=== PATIENT | female | born 1955 | race Caucasian/White ===

== ENCOUNTER 2016-08-07 14:47 | Emergency (ER) | payer OTHER ==
[~2016-08-07] VITALS: Ht 165.1 cm; Wt 48.7 kg
[~2016-08-07 14:47] MED LIST: AMBIEN CR12.5 MG; AMBIEN CR12.5 MG PO; AMLODIPINE BESY10 MG; AMPHETAMINE SAL20 MG PO; BACLOFEN20 MG; BACLOFEN20 MG PO; CENTRUM SILVER1 EAC3 PO; CIPROFLOXACIN500 M1 PO; CLONAZEPAM1 MG; CLONAZEPAM1 MG PO; CYMBALTA30 MG PO; DESYREL100 MG PO; DESYREL300 MG PO; EFFEXOR XR75 MG PO; Effexor PO; GABAPENTIN600 MG PO; HYDROMORPHONE ER8 MG PO; IBUPROFEN800 MG; KLONOPIN1 MG PO; LIDODERM 5% P1 PATCH; LYRICA150 MG; LYRICA150 MG PO; NORVASC10 MG PO; OXYCODONE HCL15 MG PO; OXYCODONE HCL20 M1 PO; OXYCODONE HCL5 MG PO; PRINIVIL10 MG; Protonix PO; TIZANIDINE HCL4 MG PO; TYLENOL PM1 CAPLET PO; VENLAFAXINE HCL75 M3; VENLAFAXINE HCL75 M3 PO; VENLAFAXINE HCL75 MG PO; ZESTRIL10 MG PO; ZOLPIDEM TART12.5 MG PO; Zestril,Prinivil PO
[2016-08-07 15:51] LABS: HEMATOCRIT 39.2 % (36.0-46.0); MCH 31.3 PG (29.0-34.0); MCHC 33.2 G/DL (30.0-36.0); MCV 94.2 FL (83-99); PLATELET COUNT 361 K/uL (156-360); RBC DIS.WIDTH-CV 12.1 % (11.8-14.6); RED BLOOD COUNT 4.16 M/uL (3.80-5.20); WHITE BLOOD COUNT 11.5 K/uL (4.1-10.2)
[2016-08-07 15:59] LABS: CHLORIDE 105 mEq/L (99-109); POTASSIUM 2.8 mEq/L (3.7-5.4); SODIUM 139 mEq/L (136-147)
[2016-08-07 16:01] LABS: GLUCOSE 97 mg/dL (70-99)
[2016-08-07 16:02] LABS: ANION GAP 9 MEQ/L (2-14)
[2016-08-07 16:03] LABS: TOTAL BILIRUBIN 0.3 mg/dL (0.0-1.0)
[2016-08-07 16:04] LABS: ALKALINE PHOSPHATASE 71 IU/L (3-129)
[2016-08-07 16:05] LABS: GFR ESTIMATE (CALCULATED) > 59 mL/min/
[2016-08-07 16:06] LABS: UREA NITROGEN (BUN) 20 mg/dL (9-23)
[2016-08-07 16:32] LABS: INFLUENZA A VIRAL ANTIGEN NEGATIVE; INFLUENZA B VIRAL ANTIGEN NEGATIVE
[2016-08-07] MEDS ORDERED: DESYREL100 MG PO (19:40)
[2016-08-07] MEDS ORDERED: TYLENOL PM1 CAPLET PO (19:40)
[2016-08-07] MEDS ORDERED: ZOFRAN ODT4 MG PO (19:43)
[2016-08-07 19:50] VITALS: BP 149/84
== END 2016-08-07 19:51 | disposition left against medical advice (07) ==
LOC: EME 14:47
PROVIDERS: Physician Assistant
DX: E87.6 Hypokalemia (principal); R53.1 Weakness; Z96.653 Presence of artificial knee joint, bilateral; Z88.6 Allergy status to analgesic agent
CPT/HCPCS: 71020; 80053; 84132 91; 85027; 87502; 93005; 99281; 99285; J3480; J7030

== ENCOUNTER 2016-08-09 15:22 | Inpatient (IN) | payer OTHER ==
[~2016-08-09] VITALS: Ht 165.1 cm; Wt 48.6 kg
[~2016-08-09 15:22] MED LIST changes: +ZOFRAN ODT4 MG PO
[2016-08-09 16:06] LABS: ADD MIUA? YES; BILIRUBIN NEGATIVE; BLOOD MODERATE; COLOR YELLOW ((YELLOW)); GLUCOSE (STRIP) NEGATIVE; KETONES NEGATIVE; LEUKOCYTES SMALL; NITRITE NEGATIVE; PROTEIN (STRIP) 30; SPECIFIC GRAVITY 1.008 (1.000-1.030); UROBILINOGEN 0.2 MG/DL (0.2-1.0)
[2016-08-09 16:13] LABS: ADD MEDTOX COMMENT Y; AMPHETAMINE PRESUMPTIVE POSITIVE (500 ng/mL); BARBITURATES NEGATIVE (200 ng/mL); BENZODIAZEPINES NEGATIVE (150 ng/mL); COCAINE NEGATIVE (150 ng/mL); INTERNAL CONTROLS VALID? YES; METHADONE NEGATIVE (200 ng/mL); METHAMPHETAMINE NEGATIVE (500 ng/mL); OPIATES (MORPHINE) PRESUMPTIVE POSITIVE (100 ng/mL); OXYCODONE PRESUMPTIVE POSITIVE (100 ng/mL); PHENCYCLIDINE NEGATIVE (25 ng/mL); PROPOXYPHENE NEGATIVE (300 ng/mL); THC CANNABINOIDS NEGATIVE (50 ng/mL); TRICYCLIC ANTIDEPRESSANTS NEGATIVE (300 ng/mL)
[2016-08-09 16:14] LABS: EOSINOPHIL (%) 0.3 % (0-5); HEMATOCRIT 40.4 % (36.0-46.0); IMMATURE GRANULOCYTE (%) 0.3 % (0.0-0.7); INSTRUMENT ABS NEUTROPHIL CT 12.3 K/uL; LYMPHOCYTE COUNT 1.1 K/uL (1.0-2.8); MCH 31.6 PG (29.0-34.0); MCHC 33.4 G/DL (30.0-36.0); MCV 94.6 FL (83-99); MEAN PLAT.VOLUME 9.2 uM^3 (9.5-12.4); MONOCYTE (%) 2.7 % (3-12); MONOCYTE COUNT 0.4 K/uL (0-0.8); NEUTROPHIL (%) 88.7 % (45-76); NEUTROPHIL COUNT 12.3 K/uL (1.8-6.4); PLATELET COUNT 341 K/uL (156-360); RBC DIS.WIDTH-CV 12.2 % (11.8-14.6); RBC DIS.WIDTH-SD 42.3 % (39-53); RED BLOOD COUNT 4.27 M/uL (3.80-5.20); WHITE BLOOD COUNT 13.9 K/uL (4.1-10.2)
[2016-08-09 16:23] LABS: CHLORIDE 98 mEq/L (99-109); SODIUM 134 mEq/L (136-147)
[2016-08-09 16:25] LABS: GLUCOSE 94 mg/dL (70-99)
[2016-08-09 16:27] LABS: ANION GAP 16 MEQ/L (2-14)
[2016-08-09 16:28] LABS: POTASSIUM 3.9 mEq/L (3.7-5.4); TOTAL BILIRUBIN 0.9 mg/dL (0.0-1.0)
[2016-08-09 16:29] LABS: ALKALINE PHOSPHATASE 81 IU/L (3-129); GFR ESTIMATE (CALCULATED) > 59 mL/min/
[2016-08-09 16:30] LABS: UREA NITROGEN (BUN) 8 mg/dL (9-23)
[2016-08-09 16:32] LABS: LIPASE 25 U/L (1.0-51.0)
[2016-08-09 16:34] LABS: BACTERIA RARE /HPF; EPITHELIAL CELLS RARE /HPF; MUCUS TRACE /LPF
[2016-08-09 17:40] LABS: AMPHETAMINES QUANT VALUE 0 NG/ML
[2016-08-09] MEDS ORDERED: AMPHETAMINE SAL30 MG PO (20:23)
[2016-08-09] MEDS ORDERED: POTASSIUM CHLO10 ME4 PO (20:31)
[2016-08-09 22:48] VITALS: BP 132/60
[2016-08-10] VITALS (7 sets, daily range): BP systolic 99–170; BP diastolic 52–93
[2016-08-10 07:11] LABS: ALKALINE PHOSPHATASE 50 IU/L (3-129); ANION GAP 6 MEQ/L (2-14); CHLORIDE 108 MEQ/L (99-109); GFR ESTIMATE (CALCULATED) > 59 mL/min/; GLUCOSE 91 mg/dL (70-99); POTASSIUM 3.6 MEQ/L (3.7-5.4); SAMPLE HEMOLYSIS CHECK 0; SAMPLE ICTERIC CHECK 0; SAMPLE LIPEMIA CHECK 0; SODIUM 140 MEQ/L (136-147); TOTAL BILIRUBIN 0.4 MG/DL (0.0-1.0); UREA NITROGEN (BUN) 8 mg/dL (9-23)
[2016-08-10 07:36] LABS: EOSINOPHIL (%) 0.3 % (0-5); EOSINOPHIL COUNT 0.1 K/uL (0-0.3); HEMATOCRIT 29.9 % (36.0-46.0); IMMATURE GRANULOCYTE (%) 0.6 % (0.0-0.7); IMMATURE GRANULOCYTE COUNT 0.1 K/uL; INSTRUMENT ABS NEUTROPHIL CT 11.2 K/uL; LYMPHOCYTE COUNT 2.3 K/uL (1.0-2.8); MCH 31.7 PG (29.0-34.0); MCHC 32.8 G/DL (30.0-36.0); MCV 96.8 FL (83-99); MONOCYTE (%) 5.2 % (3-12); MONOCYTE COUNT 0.8 K/uL (0-0.8); NEUTROPHIL (%) 77.6 % (45-76); NEUTROPHIL COUNT 11.2 K/uL (1.8-6.4); RBC DIS.WIDTH-SD 44.8 % (39-53); RED BLOOD COUNT 3.09 M/uL (3.80-5.20); WHITE BLOOD COUNT 14.5 K/uL (4.1-10.2)
[2016-08-10 08:16] LABS: MEAN PLAT.VOLUME 9.6 uM^3 (9.5-12.4); PLAT.SUFFICIENCY ADEQUATE; PLATELET COUNT 228 K/uL (156-360)
[2016-08-11 02:58] VITALS: BP 122/55
[2016-08-11 06:34] VITALS: BP 116/55
[2016-08-11 06:40] LABS: EOSINOPHIL (%) 1.6 % (0-5); EOSINOPHIL COUNT 0.1 K/uL (0-0.3); HEMATOCRIT 28.2 % (36.0-46.0); IMMATURE GRANULOCYTE (%) 0.4 % (0.0-0.7); INSTRUMENT ABS NEUTROPHIL CT 6.7 K/uL; LYMPHOCYTE COUNT 1.4 K/uL (1.0-2.8); MCHC 31.9 G/DL (30.0-36.0); MCV 100.4 FL (83-99); MEAN PLAT.VOLUME 9.4 uM^3 (9.5-12.4); MONOCYTE COUNT 0.6 K/uL (0-0.8); NEUTROPHIL COUNT 6.7 K/uL (1.8-6.4); PLATELET COUNT 173 K/uL (156-360); RBC DIS.WIDTH-CV 13.7 % (11.8-14.6); RED BLOOD COUNT 2.81 M/uL (3.80-5.20)
[2016-08-11 06:44] LABS: WHITE BLOOD COUNT 8.9 K/uL (4.1-10.2)
[2016-08-11 07:21] LABS: ALKALINE PHOSPHATASE 61 IU/L (3-129); ANION GAP 5 MEQ/L (2-14); CHLORIDE 109 MEQ/L (99-109); DIRECT BILIRUBIN 0.1 mg/dL (0.0-0.3); GFR ESTIMATE (CALCULATED) > 59 mL/min/; POTASSIUM 3.9 MEQ/L (3.7-5.4); SAMPLE HEMOLYSIS CHECK 0; SAMPLE ICTERIC CHECK 0; SAMPLE LIPEMIA CHECK 0; SODIUM 140 MEQ/L (136-147); UREA NITROGEN (BUN) 7 mg/dL (9-23)
[2016-08-11 07:25] LABS: GLUCOSE 152 mg/dL (70-99); TOTAL BILIRUBIN 0.3 MG/DL (0.0-1.0)
[2016-08-11 11:22] VITALS: BP 181/86
[2016-08-11 11:55] VITALS: BP 150/66
[2016-08-11 23:14] VITALS: BP 125/64
[2016-08-12 02:59] VITALS: BP 135/88
[2016-08-12 06:04] LABS: EOSINOPHIL COUNT 0.3 K/uL (0-0.3); HEMATOCRIT 27.7 % (36.0-46.0); IMMATURE GRANULOCYTE (%) 0.3 % (0.0-0.7); INSTRUMENT ABS NEUTROPHIL CT 4.1 K/uL; LYMPHOCYTE COUNT 1.3 K/uL (1.0-2.8); MCH 31.4 PG (29.0-34.0); MCHC 31.8 G/DL (30.0-36.0); MCV 98.9 FL (83-99); MEAN PLAT.VOLUME 9.7 uM^3 (9.5-12.4); MONOCYTE (%) 9.1 % (3-12); MONOCYTE COUNT 0.6 K/uL (0-0.8); NEUTROPHIL (%) 65.3 % (45-76); NEUTROPHIL COUNT 4.1 K/uL (1.8-6.4); PLATELET COUNT 160 K/uL (156-360); RBC DIS.WIDTH-CV 13.6 % (11.8-14.6); RBC DIS.WIDTH-SD 48.9 % (39-53); WHITE BLOOD COUNT 6.3 K/uL (4.1-10.2)
[2016-08-12 06:36] LABS: ANION GAP 5 MEQ/L (2-14); CHLORIDE 111 MEQ/L (99-109); GFR ESTIMATE (CALCULATED) > 59 mL/min/; POTASSIUM 3.7 MEQ/L (3.7-5.4); SAMPLE HEMOLYSIS CHECK 0; SAMPLE ICTERIC CHECK 0; SAMPLE LIPEMIA CHECK 0; SODIUM 143 MEQ/L (136-147); TOTAL BILIRUBIN 0.3 MG/DL (0.0-1.0); UREA NITROGEN (BUN) 7 mg/dL (9-23)
[2016-08-12 06:42] LABS: ALKALINE PHOSPHATASE 93 IU/L (3-129); GLUCOSE 112 mg/dL (70-99)
[2016-08-12 08:08] VITALS: BP 154/80
[2016-08-12 11:20] VITALS: BP 160/72
[2016-08-12 16:28] VITALS: BP 140/72
[2016-08-12 19:45] VITALS: BP 152/76
[2016-08-12 22:59] VITALS: BP 167/85
[2016-08-13 03:21] VITALS: BP 149/67
[2016-08-13 06:54] LABS: ALKALINE PHOSPHATASE 97 IU/L (3-129); ANION GAP 3 MEQ/L (2-14); CHLORIDE 108 MEQ/L (99-109); GFR ESTIMATE (CALCULATED) > 59 mL/min/; POTASSIUM 3.8 MEQ/L (3.7-5.4); SAMPLE HEMOLYSIS CHECK 0; SAMPLE ICTERIC CHECK 0; SAMPLE LIPEMIA CHECK 0; SODIUM 140 MEQ/L (136-147); TOTAL BILIRUBIN 0.3 MG/DL (0.0-1.0); UREA NITROGEN (BUN) 5 mg/dL (9-23)
[2016-08-13 06:58] LABS: EOSINOPHIL (%) 6.2 % (0-5); EOSINOPHIL COUNT 0.3 K/uL (0-0.3); HEMATOCRIT 27.8 % (36.0-46.0); IMMATURE GRANULOCYTE (%) 0.4 % (0.0-0.7); INSTRUMENT ABS NEUTROPHIL CT 2.6 K/uL; LYMPHOCYTE COUNT 1.8 K/uL (1.0-2.8); MCH 30.9 PG (29.0-34.0); MCV 96.5 FL (83-99); MEAN PLAT.VOLUME 9.8 uM^3 (9.5-12.4); MONOCYTE COUNT 0.7 K/uL (0-0.8); NEUTROPHIL (%) 47.8 % (45-76); NEUTROPHIL COUNT 2.6 K/uL (1.8-6.4); RBC DIS.WIDTH-CV 13.2 % (11.8-14.6); RBC DIS.WIDTH-SD 47.2 % (39-53); RED BLOOD COUNT 2.88 M/uL (3.80-5.20); WHITE BLOOD COUNT 5.5 K/uL (4.1-10.2)
[2016-08-13 07:02] LABS: GLUCOSE 83 mg/dL (70-99)
[2016-08-13 07:05] LABS: PLATELET COUNT 215 K/uL (156-360)
[2016-08-13 08:04] VITALS: BP 158/80
[2016-08-13 11:05] VITALS: BP 158/80
[2016-08-13 15:08] VITALS: BP 176/79
[2016-08-13 19:21] VITALS: BP 163/77
[2016-08-13 23:40] VITALS: BP 157/72
[2016-08-14 06:14] LABS: EOSINOPHIL (%) 6.5 % (0-5); EOSINOPHIL COUNT 0.4 K/uL (0-0.3); HEMATOCRIT 26.9 % (36.0-46.0); IMMATURE GRANULOCYTE (%) 0.5 % (0.0-0.7); INSTRUMENT ABS NEUTROPHIL CT 3.3 K/uL; LYMPHOCYTE COUNT 1.9 K/uL (1.0-2.8); MCHC 31.6 G/DL (30.0-36.0); MCV 98.2 FL (83-99); MEAN PLAT.VOLUME 9.9 uM^3 (9.5-12.4); MONOCYTE (%) 9.4 % (3-12); MONOCYTE COUNT 0.6 K/uL (0-0.8); NEUTROPHIL (%) 53.4 % (45-76); NEUTROPHIL COUNT 3.3 K/uL (1.8-6.4); PLATELET COUNT 213 K/uL (156-360); RBC DIS.WIDTH-CV 13.4 % (11.8-14.6); RBC DIS.WIDTH-SD 47.8 % (39-53); RED BLOOD COUNT 2.74 M/uL (3.80-5.20); WHITE BLOOD COUNT 6.2 K/uL (4.1-10.2)
[2016-08-14 06:39] LABS: ALKALINE PHOSPHATASE 99 IU/L (3-129); ANION GAP 4 MEQ/L (2-14); CHLORIDE 107 MEQ/L (99-109); GFR ESTIMATE (CALCULATED) > 59 mL/min/; SAMPLE HEMOLYSIS CHECK 0; SAMPLE ICTERIC CHECK 0; SAMPLE LIPEMIA CHECK 0; SODIUM 142 MEQ/L (136-147); UREA NITROGEN (BUN) 5 mg/dL (9-23)
[2016-08-14 06:40] LABS: GLUCOSE 129 mg/dL (70-99); TOTAL BILIRUBIN 0.2 MG/DL (0.0-1.0)
[2016-08-14 07:00] VITALS: BP 158/90
[2016-08-14 10:50] VITALS: BP 158/90
[2016-08-14 16:28] LABS: D-DIMER ELISA 2.08 mg/L FEU (< 0.57)
[2016-08-14 17:07] VITALS: BP 161/87
[2016-08-15 00:01] VITALS: BP 172/85
[2016-08-15 08:34] VITALS: BP 165/8
[2016-08-15 09:58] LABS: HEMATOCRIT 31.6 % (36.0-46.0); MCH 30.7 PG (29.0-34.0); MCHC 32.3 G/DL (30.0-36.0); MCV 95.2 FL (83-99); MEAN PLAT.VOLUME 9.6 uM^3 (9.5-12.4); PLATELET COUNT 284 K/uL (156-360); RBC DIS.WIDTH-CV 13.2 % (11.8-14.6); RBC DIS.WIDTH-SD 45.2 % (39-53); RED BLOOD COUNT 3.32 M/uL (3.80-5.20); WHITE BLOOD COUNT 6.8 K/uL (4.1-10.2)
[2016-08-15 10:29] LABS: ANION GAP 10 MEQ/L (2-14); CHLORIDE 99 MEQ/L (99-109); GFR ESTIMATE (CALCULATED) > 59 mL/min/; GLUCOSE 134 mg/dL (70-99); POTASSIUM 3.9 MEQ/L (3.7-5.4); SAMPLE HEMOLYSIS CHECK 0; SAMPLE ICTERIC CHECK 0; SAMPLE LIPEMIA CHECK 0; SODIUM 139 MEQ/L (136-147); UREA NITROGEN (BUN) 6 mg/dL (9-23)
[2016-08-15] MEDS ORDERED: DOCUSATE SODIU100 MG PO (11:13)
[2016-08-15] MEDS ORDERED: POLYETHYLENE GL17 GM PO (11:13)
[2016-08-15] MEDS ORDERED: FOLIC ACID1 MG PO (11:13)
[2016-08-15] MEDS ORDERED: NICOTINE PATCH1 EAC2 TD (11:13)
[2016-08-15] MEDS ORDERED: CYANOCOBALAM1000 MCG PO (11:13)
[2016-08-15] MEDS ORDERED: ROCEPHIN 2 GM VI2 GM IV (11:18)
[2016-08-15] MEDS ORDERED: CLONAZEPAM1 MG PO (12:16)
== END 2016-08-15 12:44 | disposition home or self-care (01) | DRG 872 ==
LOC: EME 15:22 → EXP 15:22 → EDOF 21:06 → 5EAST 21:06
PROVIDERS: Hospitalist; Internal Medicine; Physician Assistant
PROC: 0T778DZ Dilation of Left Ureter with Intraluminal Device, Via Natural or Artificial Opening Endoscopic (ICD-10-PCS; principal; 2016-08-10)
DX: A41.51 Sepsis due to Escherichia coli [E. coli] (principal); N13.2 Hydronephrosis with renal and ureteral calculous obstruction; N12 Tubulo-interstitial nephritis, not specified as acute or chronic; E87.2 Acidosis; N10 Acute pyelonephritis; G89.29 Other chronic pain; D64.9 Anemia, unspecified; M54.9 Dorsalgia, unspecified; M79.1 Myalgia; I10 Essential (primary) hypertension; F17.200 Nicotine dependence, unspecified, uncomplicated; K83.8 Other specified diseases of biliary tract; F32.9 Major depressive disorder, single episode, unspecified; F41.9 Anxiety disorder, unspecified; F42.8 Other obsessive-compulsive disorder; J44.9 Chronic obstructive pulmonary disease, unspecified; Z88.6 Allergy status to analgesic agent; Z88.8 Allergy status to other drugs, medicaments and biological substances
CPT/HCPCS: 71010; 71020; 71275; 72132; 74177; 80048; 80053; 80076; 81003; 82550; 82607; 82746; 82948; 83605; 83690; 84132 91; 84999; 85025; 85027; 85379; 87040; 87077; 87086; 87186; 87502; 87801; 93005; 94640; 94640 76; 94799; 99202; 99281; 99285; C1876; J0696; J1170; J1644; J1885; J2250; J2405; J2543; J3370; J3480; J7030; J7040; J7050; S0028

== ENCOUNTER 2016-12-23 12:33 | Emergency (ER) | payer OTHER ==
[~2016-12-23] VITALS: Ht 165.1 cm; Wt 50.3 kg
[~2016-12-23 12:33] MED LIST changes: +AMPHETAMINE SAL30 MG PO; +CYANOCOBALAM1000 MCG PO; +DOCUSATE SODIU100 MG PO; +FOLIC ACID1 MG PO; +NICOTINE PATCH1 EAC2 TD; +POLYETHYLENE GL17 GM PO; +POTASSIUM CHLO10 ME4 PO; +ROCEPHIN 2 GM VI2 GM IV
[2016-12-23] MEDS ORDERED: LIDODERM 5% P1 PATCH TD (14:02)
[2016-12-23] MEDS ORDERED: FLEXERIL5 MG PO (14:02)
[2016-12-23 14:23] VITALS: BP 137/92
== END 2016-12-23 14:24 | disposition home or self-care (01) ==
LOC: EME 12:33
DX: S20.229A Contusion of unspecified back wall of thorax, initial encounter (principal); W17.89XA Other fall from one level to another, initial encounter; M54.5 Low back pain; G89.29 Other chronic pain; F17.200 Nicotine dependence, unspecified, uncomplicated; Z96.659 Presence of unspecified artificial knee joint
CPT/HCPCS: 72100; 99281; 99284; J1885